=== PATIENT | male | born 1975 | race Caucasian/White ===

== ENCOUNTER 2021-06-18 17:02 | Emergency (ER) | payer OTHER ==
[~2021-06-18] VITALS: Ht 180.3 cm; Wt 93.0 kg
[~2021-06-18 17:02] MED LIST: ADVIL200 MG PO; ALEVE220 MG PO; ASPIRIN EC325 MG PO; CELEBREX200 MG PO; CELECOXIB200 MG PO; FISH OIL 1,0001 EAC3 PO; GABAPENTIN600 MG PO; HEALTHYLAX17 GM PO; HYDROMORPHONE HC4 MG PO; IBUPROFEN200 MG PO; MULTIVITAMINS1 EAC8 PO; OMEPRAZOLE20 MG PO; SENNA LAX8.6 MG PO; SIMETHICONE80 MG PO; TYLENOL EXTRA500 MG PO
== END 2021-06-18 19:49 | disposition home or self-care (01) ==
LOC: ED 17:02
DX: R04.0 Epistaxis (principal); Z88.5 Allergy status to narcotic agent
CPT/HCPCS: 30903; 99283-25